=== PATIENT | male | born 1965 | race Caucasian/White ===

== ENCOUNTER 2016-09-11 19:13 | Emergency (ER) | payer OTHER ==
[~2016-09-11 19:13] MED LIST: MELATONIN3 M4 PO; NAPROSYN500 M1 PO; NORCO 5-325 TA1 EACH PO
[2016-09-11 19:18] LABS: BASO % 0.2 % (0-2); EOS % 0.6 % (0-7); EOSINOPHIL ABSOLUTE COUNT 0.1 tho/cmm (0.0-0.7); HGB-HEMOGLOBIN 15.4 gm/dl (13.5-17.0); IMMATURE GRANULOCYTES ABSOLUTE 0.03 tho/cmm (0-0.03); IMMATURE GRANULOCYTES PERCENT 0.2 % (0-0.3); LYMPH ABSOLUTE COUNT 1.5 tho/cmm (0.8-4.5); MCH (MEAN CORPUSCULAR HGB) 31.5 pg (28.0-32.0); MEAN PLATELET VOLUME 10.2 cmc (9.4-12.4); MONO % 4.9 % (0-12); MONOCYTE ABSOLUTE COUNT 0.6 tho/cmm (0.0-1.2); NEUTROPHILS % 82.1 % (40-80); PLATELET COUNT 244 tho/cmm (150-450); RED BLOOD COUNT 4.89 mil/cmm (4.40-5.70); RED CELL DISTRIBUTION WIDTH 12.5 % (12.4-16.4); WHITE BLOOD COUNT 12.2 tho/cmm (4.0-10.0)
[2016-09-11 19:37] LABS: ALB/GLOB RATIO 1.2 (0.8-2.0); ALCOHOL (ETOH) 15 mg/dl (<10); ALKALINE PHOSPHATASE 97 U/L (33-138); ALT/SGPT 32 U/L (12-78); ANION GAP 11 mmol/L (0-20); AST/SGOT 18 U/L (10-40); BILIRUBIN,TOTAL 0.3 mg/dl (0.0-1.5); BLOOD UREA NITROGEN 19 mg/dl (6-24); CALCIUM 8.6 mg/dl (8.5-10.5); CARBON DIOXIDE-VENOUS 25 mmol/L (22-32); CHLORIDE 106 mmol/l (96-110); GLUCOSE 92 mg/dL (70-110); MAGNESIUM 2.3 mg/dl (1.3-2.6); POTASSIUM 3.5 mmol/L (3.7-5.1); SODIUM 138 mmol/L (135-145); eGFR VALUE FOR BLACK >90 mL/Min
[2016-09-11] MEDS ORDERED: LEVAQUIN750 M1 PO (20:58)
== END 2016-09-11 21:19 ==
LOC: EDMED 19:13
PROVIDERS: Family Medicine
DX: J18.9 Pneumonia, unspecified organism (principal); E87.6 Hypokalemia; R55 Syncope and collapse
CPT/HCPCS: G0480; J7030